=== PATIENT | male | born 1995 | race Caucasian/White ===

== ENCOUNTER 2018-05-23 23:20 | Emergency (ER) | payer SELFPAY ==
[~2018-05-23] VITALS: Ht 175.3 cm; Wt 77.3 kg
[2018-05-23 23:25] VITALS: BP 121/68; PULSE 76; RESP 20; Ht 175.3 cm; Wt 77.3 kg
== END 2018-05-24 01:21 | disposition left against medical advice (07) ==
LOC: FTE 23:20
DX: Z53.21 Procedure and treatment not carried out due to patient leaving prior to being seen by health care provider (principal)